=== PATIENT | female | born 1975 | race Caucasian/White ===

== ENCOUNTER 2016-12-07 16:52 | Emergency (ER) | payer OTHER ==
[~2016-12-07] VITALS: Ht 165.1 cm; Wt 122.5 kg
[2016-12-07] MEDS ORDERED: IV NORMAL SALINE 1000ML BAG 1,000 ML IV SCH (19:15)
[2016-12-07] MEDS ORDERED: methylPREDNISolone SOD SUCC PF 125 MG/2 ML VIAL. IV ONE (19:15)
[2016-12-07] MEDS ORDERED: IOHEXOL 300 MG/ML 75 ML VIAL IV ONE (19:15)
[2016-12-07] MEDS ORDERED: DIPHENHYDRAMINE 50 MG/ML VIAL IV ONE (19:15)
[2016-12-07 19:30] LABS: BASO # 0.1 x10^3/uL (0.0-0.2); BASO % 1 % (0-3); EOS % 2 % (0-3); HEMATOCRIT 37.8 % (36.0-47.0); HEMOGLOBIN 12.3 g/dL (12.0-15.5); LYMPH # 2.8 x10^3/uL (1.0-4.8); LYMPH % 30 % (24-48); MEAN CORPUSCULAR HEMOGLOBIN 28 pg (25-35); MEAN CORPUSCULAR HGB CONC 33 g/dL (31-37); MEAN CORPUSCULAR VOLUME 85 fL (79-100); MONO % 7 % (0-9); NEUT % 61 % (31-73); PLATELET COUNT 252 x10^3/uL (140-400); RED BLOOD COUNT 4.44 x10^6/uL (3.50-5.40); WHITE BLOOD COUNT 9.3 x10^3/uL (4.0-11.0)
[2016-12-07] MEDS ORDERED: CONTRAST GIVEN MC PRN (19:30)
[2016-12-07 19:43] LABS: CALCIUM 9.3 mg/dL (8.5-10.1); CREATININE 0.8 mg/dL (0.6-1.0); GFR 79.9; POTASSIUM 3.6 mmol/L (3.5-5.1)
[2016-12-07 19:49] LABS: ALBUMIN 3.9 g/dL (3.4-5.0); ALBUMIN/GLOBULIN RATIO 1.2 (1.0-1.7); TOTAL BILIRUBIN 0.3 mg/dL (0.2-1.0); TOTAL PROTEIN 7.2 g/dL (6.4-8.2)
--- NOTE | 2016-12-07 21:06 | RAD ---
INDICATION: 41-year-old female with shortness of air and chest pain for 6 days. COMPARISON: None TECHNIQUE: Axial CT images obtained through the chest following the intravenous administration of 75 cc of Omni 300 utilizing an angiogram protocol. 3D images processed per protocol. The patient was pre-medicated with Solu-Medrol and Benadryl for iodine allergy, not specified. One or more of the following individualized dose reduction techniques were utilized for this examination: 1. Automated exposure control; 2. Adjustment of the mA and/or kV according to patient size; 3. Use of iterative reconstruction technique. FINDINGS: The pulmonary arteries are adequately opacified without intraluminal filling defect to suggest pulmonary embolus. The aorta is normal in caliber. The heart is normal in size without pericardial effusion. No significant mediastinal or hilar lymphadenopathy is seen. Calcified right hilar lymph nodes are present, consistent with prior granulomatous disease. There is no focal opacity, pleural effusion or pneumothorax. Calcified granuloma present within the right lower lobe, consistent with prior granulomatous disease. The central airways appear patent. The visualized osseous structures and overlying soft tissues demonstrate no acute or suspicious finding. The visualized upper abdomen demonstrates no acute finding. IMPRESSION: No CT evidence of pulmonary embolus or other acute cardiopulmonary process. Electronically signed by: Natacha Lira (Dec 07, 2016 21:04:52)
[2016-12-07 21:45] VITALS: BP 144/82
--- NOTE | 2016-12-07 22:01 | PHYS DOC ---
Past Medical History Past Medical History: Anxiety, Asthma, Depression, Fibromyalgia, Hypertension, Migraines, Other Additional Past Medical Histor: PCOS Past Surgical History: Cholecystectomy, Hysterectomy, Other Additional Past Surgical Histo: CYSTS ON OVARIES REMOVED Alcohol Use: None Drug Use: None Adult General Chief Complaint Chief Complaint: CHEST PAIN HPI HPI Patient is a 41 year old female who complains of chest pain and shortness of breath that started Monday 5 days ago and has been intermittent since then. Her symptoms are not worse with exertion. They do not wake her at night. She does have a history of adult onset asthma and uses a maintenance inhaler and a rescue inhaler. The symptoms do not feel like her asthma. The patient had a hysterectomy in September and she has been on estrogen patches since then. She has no history of a blood clot. She has had no fever or chills. No cough. Her chest feels tight and constricted like her bra is too tight. This does not seem to be intermittent, seems to be more of a continuous sensation. Review of Systems Review of Systems Constitutional: Denies fever or chills [] Eyes: Denies change in visual acuity, redness, or eye pain [] HENT: Denies nasal congestion or sore throat [] Respiratory: As in history of present illness Cardiovascular: As in history of present illness GI: Denies abdominal pain, nausea, vomiting, bloody stools or diarrhea [] : Denies dysuria or hematuria [] Musculoskeletal: Denies back pain or joint pain [] Integument: Denies rash or skin lesions [] Neurologic: Denies headache, focal weakness or sensory changes [] Current Medications Current Medications Current Medications Medications (Trade) Dose Ordered Sig/Balbir Start Time Stop Time Status Last Admin Dose Admin Diphenhydramine HCl 25 mg 25 mg 1X ONCE 12/07/16 19:15 12/07/16 19:16 DC 12/07/16 19:56 25 MG Info (Do NOT chart on this entry -- for MONITORING) 1 each PRN DAILY PRN 12/07/16 19:30 12/07/16 22:15 DC Iohexol (Omnipaque 300 Mg/ml) 75 ml 1X ONCE 12/07/16 19:15 12/07/16 19:19 DC 12/07/16 20:39 75 ML Methylprednisolone Sodium Succinate (Solu-Medrol 125mg Vial) 125 mg 1X ONCE 12/07/16 19:15 12/07/16 19:16 DC 12/07/16 19:54 125 MG Sodium Chloride (Iv Sodium Chloride 0.9% 1000ml Bag) 1,000 ml @ 100 mls/hr Q10H 12/07/16 19:15 12/07/16 22:15 DC 12/07/16 19:59 100 MLS/HR Allergies Allergies Allergies Coded Allergies Type Severity Reaction Last Updated Verified Iodinated Contrast Media - Oral and Allergy Intermediate Anaphylaxis 12/07/16 Yes Penicillins Allergy Intermediate RASH 12/07/16 Yes amoxicillin Allergy Intermediate RASH 12/07/16 Yes latex Adverse Reaction Unknown 12/07/16 Yes Physical Exam Physical Exam Constitutional: Well developed, well nourished, no acute distress, non-toxic appearance. No dyspnea. Pulse ox on room air 99%. Non-tachycardic. Alert, mentating normally. HENT: Normocephalic, atraumatic, bilateral external ears normal, nose normal. [] Eyes: conjunctiva normal, no discharge. [] Neck: Normal range of motion, no stridor. [] Cardiovascular:Heart rate regular rhythm, no murmur [] Lungs & Thorax: Bilateral breath sounds clear to auscultation , no wheezes Skin: Warm, dry, no erythema, no rash. [] Extremities: No tenderness, no cyanosis, no clubbing, ROM intact, no edema. [] Neurologic: Alert and oriented X 3, normal motor function, normal sensory function, no focal deficits noted. [] Current Patient Data Vital Signs Vital Signs Date Time Temp Pulse Resp B/P Pulse Ox O2 Delivery O2 Flow Rate FiO2 12/07/16 21:45 73 23 144/82 98 Room Air 12/07/16 18:40 97.9 97.9 Lab Values Laboratory Tests Test 12/07/16 19:18 White Blood Count 9.3x10^3/uL (4.0-11.0) Red Blood Count 4.44x10^6/uL (3.50-5.40) Hemoglobin 12.3g/dL (12.0-15.5) Hematocrit 37.8% (36.0-47.0) Mean Corpuscular Volume 85fL (79-100) Mean Corpuscular Hemoglobin 28pg (25-35) Mean Corpuscular Hemoglobin Concent 33g/dL (31-37) Red Cell Distribution Width 14.0% (11.5-14.5) Platelet Count 252x10^3/uL (140-400) Neutrophils (%) (Auto) 61% (31-73) Lymphocytes (%) (Auto) 30% (24-48) Monocytes (%) (Auto) 7% (0-9) Eosinophils (%) (Auto) 2% (0-3) Basophils (%) (Auto) 1% (0-3) Neutrophils # (Auto) 5.7x10^3uL (1.8-7.7) Lymphocytes # (Auto) 2.8x10^3/uL (1.0-4.8) Monocytes # (Auto) 0.7x10^3/uL (0.0-1.1) Eosinophils # (Auto) 0.2x10^3/uL (0.0-0.7) Basophils # (Auto) 0.1x10^3/uL (0.0-0.2) D-Dimer (Shi) 0.29ug/mlFEU (0.00-0.50) Sodium Level 142mmol/L (136-145) Potassium Level 3.6mmol/L (3.5-5.1) Chloride Level 108mmol/L (98-107) H Carbon Dioxide Level 21mmol/L (21-32) Anion Gap 13 (6-14) Blood Urea Nitrogen 22mg/dL (7-20) H Creatinine 0.8mg/dL (0.6-1.0) Estimated GFR (Cockcroft-Gault) 79.9 BUN/Creatinine Ratio 28 (6-20) H Glucose Level 89mg/dL (70-99) Calcium Level 9.3mg/dL (8.5-10.1) Total Bilirubin 0.3mg/dL (0.2-1.0) Aspartate Amino Transferase (AST) 15U/L (15-37) Alanine Aminotransferase (ALT) 39U/L (14-59) Alkaline Phosphatase 51U/L (46-116) Total Protein 7.2g/dL (6.4-8.2) Albumin 3.9g/dL (3.4-5.0) Albumin/Globulin Ratio 1.2 (1.0-1.7) Laboratory Tests 12/07/16 19:18 Laboratory Tests 12/07/16 19:18 EKG EKG 12-lead EKG read by me. Sinus rhythm. Heart rate 78. There are no acute ST or T wave changes indicative of ischemia or infarction. No STEMI. 1703 [] Radiology/Procedures Radiology/Procedures CT angiography of the chest read by the radiologist as negative for pulmonary emboli and negative for other acute findings. [] Course & Med Decision Making Course & Med Decision Making Pertinent Labs and Imaging studies reviewed. (See chart for details) 41-year-old female who is on estrogen replacement after a hysterectomy in September comes in with feeling shortness of air and a tightness in the chest although her vital signs are normal and her pulse ox on room air is 99%. Her lungs are clear to auscultation. She is in no respiratory distress and able to speak full sentences. My main concern with the patient is to rule out pulmonary embolus and CT scan is negative for PE. Her symptoms do not sound cardiac to me. It has been more or less constant since Monday, it was worse Monday and then improved some and then his gotten bad again the last day or 2. She has no accompanying symptoms and her symptoms are not worse with exertion. Cardiac enzymes are negative. I feel comfortable discharging the patient after this evaluation, discussed with the patient and her family who are also comfortable with that plan. She is to follow up with her primary care provider. [] Dragon Disclaimer Dragon Disclaimer This electronic medical record was generated, in whole or in part, using a voice recognition dictation system. Departure Departure Impression: Primary Impression: Dyspnea Disposition: HOME, SELF-CARE Condition: STABLE Referrals: REUBEN ALFARO MD (PCP) Additional Instructions: As we discussed, CT scan was negative for blood clot and other tests also negative for any serious cause of the symptoms. Continue to take asthma inhalers as prescribed. If worse, return to ED. If not improved in 2-3 days, see your doctor for recheck. ANDRES CR MD Dec 07, 2016 22:01
--- NOTE | 2016-12-08 06:07 | EKG ---
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
== END 2016-12-07 22:05 | disposition home or self-care (01) ==
LOC: ER 16:52
DX: R06.00 Dyspnea, unspecified (principal); R07.89 Other chest pain; J45.909 Unspecified asthma, uncomplicated; I10 Essential (primary) hypertension; G43.909 Migraine, unspecified, not intractable, without status migrainosus; M79.7 Fibromyalgia; Z90.710 Acquired absence of both cervix and uterus; Z88.0 Allergy status to penicillin; Z88.1 Allergy status to other antibiotic agents; Z91.041 Radiographic dye allergy status; Z91.040 Latex allergy status
CPT/HCPCS: 36415; 71275; 80053; 85027; 85379; 93005; 96361; 96374; 96375; 99285; J1200; J2930; J7030; Q9967